=== PATIENT | female | born 1935 | race Asian ===

== ENCOUNTER → 2017-01-26 | Outpatient (CLI) | payer OTHER ==
[~2017-01-26] MED LIST: AMLO5TAB66 PO; ASPI-1093 PO; ATOR40TA71 PO; BACL10TA PO; CETI-340 PO; CHOL10002 PO; DICL2100G TP; FLUT16H NS; FOLI1CAP16 PO; INSLAN SQ; INSU100C6 SQ; ISOS60TA4 PO; LOSA100T29 PO; METO-325 PO; NITR0.4T SL; PREG25 PO
== END | disposition home or self-care (01) ==
LOC: RADPV 11:02
PROVIDERS: ATTEND Internal Medicine Nephrology
DX: S92.345D Nondisplaced fracture of fourth metatarsal bone, left foot, subsequent encounter for fracture with routine healing (principal); M85.872 Other specified disorders of bone density and structure, left ankle and foot; Z91.81 History of falling; X58.XXXD Exposure to other specified factors, subsequent encounter

== ENCOUNTER 2017-09-15 17:12 | Emergency (ER) | payer OTHER ==
[~2017-09-15] VITALS: Ht 157.5 cm; Wt 75.0 kg
[~2017-09-15 17:12] MED LIST changes: -ASPI-1093 PO; +ASPI-1182 PO; -METO-325 PO; +METO-558 PO
[2017-09-15 17:37] LABS: GLUCOSE,POINT OF CARE 188 MG/DL (70-110)
[2017-09-15] MEDS ORDERED: ALBUTEROL SULFATE 2.5 MG/0.5 ML NEB SOLUTION NEB ONE ×2 (18:15)
[2017-09-15] MEDS ORDERED: ACETAMINOPHEN 325 MG TABLET PO ONE (18:15)
[2017-09-15] MEDS ORDERED: IPRATROPIUM BROMIDE 0.5 MG/2.5 ML NEB SOLUTION NEB ONE (18:15)
[2017-09-15] MEDS ORDERED: ONDANSETRON HCL 4 MG/2 ML VIAL IVP ONE (18:15)
[2017-09-15 18:28] LABS: CALCIUM, TOTAL 8.5 mg/dL (8.8-10.5); CREATININE 1.53 mg/dL (0.60-1.30); POTASSIUM 3.6 mmol/L (3.5-5.1)
[2017-09-15 18:31] LABS: BASOPHILS % (AUTO) 0.9 % (0.0-2.0); EOSINOPHILS % (AUTO) 0.1 % (1.0-6.0); HEMATOCRIT 27.5 % (36-46); HEMOGLOBIN 9.1 g/dL (12.0-16.0); LYMPHOCYTES # (AUTO) 0.6 K/uL (1.0-4.8); LYMPHOCYTES % (AUTO) 5.4 % (22.0-44.0); MEAN CORPUSCULAR HEMOGLOBIN 30.6 pg (26.0-34.0); MEAN CORPUSCULAR HGB CONC 33.3 G/dL (31.0-37.0); MEAN CORPUSCULAR VOLUME 92 fL (80-100); MONOCYTES # (AUTO) 0.3 K/uL (0.1-1.0); MONOCYTES % (AUTO) 2.4 % (2.0-9.0); NEUTROPHILS # (AUTO) 9.6 K/uL (1.8-7.7); RED BLOOD CELL COUNT(AUTO) 2.99 MIL/uL (4.00-5.20); RED CELL DISTRIBUTION WIDTH 15.9 % (11.5-14.5)
[2017-09-15 18:32] LABS: NEUTROPHILS % (AUTO) 91.2 % (40.0-70.0)
[2017-09-15 18:34] LABS: ALBUMIN 3.3 g/dL (3.4-5.0); BILIRUBIN,TOTAL 0.6 mg/dL (0.1-1.0); TOTAL PROTEIN, SERUM 7.7 g/dL (6.4-8.2)
[2017-09-15 19:35] LABS: PLATELET COUNT (AUTO) 56 K/uL (150-450)
[2017-09-15 19:36] LABS: PLATELET MORPHOLOGY COMMENT GIANT PLTS PRESENT
[2017-09-15] MEDS ORDERED: FUROSEMIDE 40 MG/4 ML VIAL IVP ONE (20:00)
[2017-09-15] MEDS ORDERED: ALBUTEROL SULFATE 5 MG/ML 20 ML NEB SOLN [BULK] NEB ONE (20:00)
[2017-09-15] MEDS ORDERED: 0.9% SODIUM CHLORIDE 5 ML NEB SOLUTION NEB ONE (20:21)
[2017-09-15 22:25] LABS: APPEARANCE,URINE CLEAR (CLEAR); BILIRUBIN,URINE NEGATIVE (NEGATIVE); GLUCOSE, URINE (UA) 100 mg/dL (NEGATIVE); KETONES,URINE NEGATIVE (NEGATIVE); LEUKOCYTE ESTERASE ,URINE TRACE (NEGATIVE); NITRATE,URINE NEGATIVE (NEGATIVE); OCCULT BLOOD,URINE NEGATIVE (NEGATIVE); PH,URINE 5.5 (5.0-8.0); PROTEIN,URINE POS 1+ (NEGATIVE); UROBILINOGEN,URINE 0.2 mg/dL (<=1.0)
[2017-09-15 22:31] LABS: BACTERIA,URINE None Seen /HPF (None Seen); RBC,URINE None Seen /HPF (0-2); SQUAMOUS EPITHELIAL CELL,UR Moderate /LPF (None Seen); WBC,URINE 0-2 /HPF (0-5)
[2017-09-15 22:38] VITALS: BP 119/78
== END 2017-09-15 22:46 | disposition home or self-care (01) ==
LOC: EMS 17:13
DX: R11.2 Nausea with vomiting, unspecified (principal); K80.80 Other cholelithiasis without obstruction; I13.0 Hypertensive heart and chronic kidney disease with heart failure and stage 1 through stage 4 chronic kidney disease, or unspecified chronic kidney disease; N18.9 Chronic kidney disease, unspecified; I50.9 Heart failure, unspecified; R06.02 Shortness of breath; E78.00 Pure hypercholesterolemia, unspecified; I25.10 Atherosclerotic heart disease of native coronary artery without angina pectoris; Z79.4 Long term (current) use of insulin
CPT/HCPCS: 36415; 71010; 74176; 80053; 81001; 82962; 83690; 83880; 84484; 85025; 93005; 94640; 96374; 96375; 99285; J1940; J2405

== ENCOUNTER → 2018-01-26 | Outpatient (CLI) | payer MEDICARE, OTHER ==
[2018-01-26 13:58] LABS: BASOPHILS % (AUTO) 1.9 % (0.0-2.0); EOSINOPHILS % (AUTO) 11.2 % (1.0-6.0); HEMATOCRIT 26.8 % (36-46); LYMPHOCYTES # (AUTO) 1.4 K/uL (1.0-4.8); LYMPHOCYTES % (AUTO) 18.6 % (22.0-44.0); MEAN CORPUSCULAR HEMOGLOBIN 31.5 pg (26.0-34.0); MEAN CORPUSCULAR HGB CONC 33.5 G/dL (31.0-37.0); MEAN CORPUSCULAR VOLUME 94 fL (80-100); MONOCYTES # (AUTO) 0.7 K/uL (0.1-1.0); NEUTROPHILS # (AUTO) 4.6 K/uL (1.8-7.7); NEUTROPHILS % (AUTO) 59.3 % (40.0-70.0); PLATELET COUNT (AUTO) 49 K/uL (150-450); RED BLOOD CELL COUNT(AUTO) 2.86 MIL/uL (4.00-5.20); RED CELL DISTRIBUTION WIDTH 18.3 % (11.5-14.5)
[2018-01-26 14:04] LABS: ALBUMIN 3.4 g/dL (3.4-5.0); BILIRUBIN,TOTAL 1.2 mg/dL (0.1-1.0); CALCIUM, TOTAL 8.4 mg/dL (8.8-10.5); CREATININE 1.7 mg/dL (0.60-1.30); POTASSIUM 3.7 mmol/L (3.5-5.1); TOTAL PROTEIN, SERUM 7.7 g/dL (6.4-8.2)
[2018-01-26 14:10] LABS: PLATELET MORPHOLOGY COMMENT GIANT PLTS PRESENT
== END | disposition home or self-care (01) ==
LOC: LABPV 11:58
PROVIDERS: ATTEND Internal Medicine
DX: H57.8 Other specified disorders of eye and adnexa (principal); R60.9 Edema, unspecified; I11.0 Hypertensive heart disease with heart failure; I50.9 Heart failure, unspecified; I25.10 Atherosclerotic heart disease of native coronary artery without angina pectoris; E78.00 Pure hypercholesterolemia, unspecified

== ENCOUNTER 2019-07-06 14:41 | Inpatient (IN) | payer MEDICARE, OTHER ==
[~2019-07-06] VITALS: Ht 157.5 cm; Wt 68.8 kg
[~2019-07-06 14:41] MED LIST changes: -ASPI-1182 PO; +ASPI-556 PO; -BACL10TA PO; +BENZ-51 PO; -CETI-340 PO; -CHOL10002 PO; -DICL2100G TP; +FERR325T22 PO; -FLUT16H NS; -FOLI1CAP16 PO; +FURO40 PO; +GLIP5 PO; -INSLAN SQ; -INSU100C6 SQ; -ISOS60TA4 PO; -LOSA100T29 PO; +LOSA25TA41 PO; -METO-558 PO; +METO25 PO; -NITR0.4T SL; +OMEP20CA12 PO; -PREG25 PO
[2019-07-06 15:07] LABS: GLUCOSE,POINT OF CARE 301 MG/DL (70-110)
[2019-07-06 15:28] LABS: CALCIUM, TOTAL 8.4 mg/dL (8.8-10.5); CREATININE 1.79 mg/dL (0.60-1.30); POTASSIUM 5.7 mmol/L (3.5-5.1)
[2019-07-06] MEDS ORDERED: FUROSEMIDE 40 MG/4 ML VIAL IVP ONE (15:30)
[2019-07-06 15:34] LABS: ALBUMIN 3.3 g/dL (3.4-5.0); BILIRUBIN,TOTAL 0.7 mg/dL (0.1-1.0); INR 1.1 (0.9-1.1); PROTHROMBIN TIME 11.1 SEC (9.4-11.6)
[2019-07-06 15:48] LABS: HEMATOCRIT 23.6 % (36-46); HEMOGLOBIN 7.8 g/dL (12.0-16.0); MEAN CORPUSCULAR HEMOGLOBIN 33.9 pg (26.0-34.0); MEAN CORPUSCULAR HGB CONC 32.9 G/dL (31.0-37.0); MEAN CORPUSCULAR VOLUME 103 fL (80-100); RED BLOOD CELL COUNT(AUTO) 2.29 MIL/uL (4.00-5.20); RED CELL DISTRIBUTION WIDTH 19.2 % (11.5-14.5)
[2019-07-06] MEDS ORDERED: ALBUTEROL SULFATE 5 MG/ML 20 ML NEB SOLN [BULK] NEB ONE (16:00)
[2019-07-06] MEDS ORDERED: DEXTROSE 50%-WATER 25 GM/50 ML SYRINGE IVP ONE (16:00)
[2019-07-06] MEDS ORDERED: CALCIUM GLUCONATE 100 MG/ML 10 ML IVP ONE (16:00)
[2019-07-06] MEDS ORDERED: INSULIN REGULAR, HUMAN 100 UNITS/ML IVP ONE (16:00)
[2019-07-06 16:33] LABS: PLATELET COUNT (AUTO) 70 K/uL (150-450)
[2019-07-06 16:34] LABS: BAND NEUTROPHILS % (MANUAL) 1 % (0-5); BASOPHILS % (MANUAL) 1 % (0-2); EOSINOPHILS % (MANUAL) 1 % (1-6); LYMPHOCYTES % (MANUAL) 26 % (22-44); MONOCYTES % (MANUAL) 3 % (2-9); REACTIVE LYMPHOCYTES 3 % (0-0); SEGMENTED NEUTROPHILS % 65 % (40-70)
[2019-07-06 16:35] LABS: METAMYELOCYTES % 0 % (0-0); MYELOCYTES % 0 % (0-0)
[2019-07-06 16:36] LABS: BLASTS, MANUAL % 0 (0-0); PROMYELOCYTES % 0 (0-0)
[2019-07-06 16:37] LABS: PLATELET MORPHOLOGY COMMENT GIANT PLTS PRESENT
[2019-07-06] MEDS ORDERED: 0.9% SODIUM CHLORIDE 10 ML SYRINGE IVP PRN (17:15)
[2019-07-06] MEDS ORDERED: ACETAMINOPHEN 325 MG TABLET PO PRN (17:15)
[2019-07-06] MEDS ORDERED: ONDANSETRON HCL 4 MG/2 ML VIAL IVP PRN ×2 (17:15→22:15)
[2019-07-06] MEDS ORDERED: 0.9% SODIUM CHLORIDE 5 ML NEB SOLUTION NEB ONE (17:21)
[2019-07-06 17:41] LABS: GLUCOSE,POINT OF CARE 209 MG/DL (70-110)
[2019-07-06 20:31] VITALS: BP 148/67
[2019-07-06] MEDS ORDERED: SODIUM CHLORIDE 0.9% 500 ML IV ONE (21:53)
[2019-07-06] MEDS ORDERED: HYDROCODONE/ACETAMINOPHEN 5-325 MG TABLET PO PRN (22:15)
[2019-07-06] MEDS ORDERED: DEXTROSE 50%-WATER 25 GM/50 ML SYRINGE IVP PRN (22:15)
[2019-07-06] MEDS ORDERED: BISACODYL 10 MG RECTAL RECTAL SUPPOSITORY PR PRN (22:15)
[2019-07-06] MEDS ORDERED: MAGNESIUM HYDROXIDE SUSPENSION 30 ML UDCUP PO PRN (22:15)
[2019-07-06] MEDS ORDERED: MORPHINE SULFATE 2 MG/ML SYRINGE IVP PRN (22:15)
[2019-07-06] MEDS ORDERED: ZOLPIDEM TARTRATE 5 MG TABLET PO PRN (22:15)
[2019-07-06] MEDS ORDERED: ALBUTEROL SULFATE 2.5 MG/0.5 ML NEB SOLUTION NEB PRN (22:15)
[2019-07-06] MEDS ORDERED: IPRATROPIUM BROMIDE 0.5 MG/2.5 ML NEB SOLUTION NEB PRN (22:15)
[2019-07-06] MEDS: HEPARIN SODIUM,PORCINE 5,000 UNITS/ML VIAL SQ SCH (23:07)
[2019-07-06 23:32] VITALS: BP 123/59
[2019-07-07] VITALS (12 sets, daily range): BP systolic 119–150; BP diastolic 58–91
[2019-07-07 05:33] LABS: HEMATOCRIT 24.6 % (36-46); HEMOGLOBIN 8.1 g/dL (12.0-16.0); MEAN CORPUSCULAR HGB CONC 33.1 G/dL (31.0-37.0); MEAN CORPUSCULAR VOLUME 100 fL (80-100); PLATELET COUNT (AUTO) 59 K/uL (150-450); RED BLOOD CELL COUNT(AUTO) 2.47 MIL/uL (4.00-5.20); RED CELL DISTRIBUTION WIDTH 20.3 % (11.5-14.5)
[2019-07-07 05:52] LABS: ALBUMIN 3.2 g/dL (3.4-5.0); CALCIUM, TOTAL 8.4 mg/dL (8.8-10.5); CREATININE 1.71 mg/dL (0.60-1.30); POTASSIUM 4.6 mmol/L (3.5-5.1); TOTAL PROTEIN, SERUM 7.6 g/dL (6.4-8.2)
[2019-07-07] MEDS: GlipiZIDE 5 MG TABLET PO SCH ×2 (06:07→17:37)
[2019-07-07 06:18] LABS: GLUCOMETER DEV NAME(LOC) 5S.1; GLUCOSE,POINT OF CARE 138 MG/DL (70-110)
[2019-07-07 06:33] LABS: APPEARANCE,URINE CLEAR (CLEAR); BILIRUBIN,URINE NEGATIVE (NEGATIVE); GLUCOSE, URINE (UA) NEGATIVE (NEGATIVE); KETONES,URINE NEGATIVE (NEGATIVE); LEUKOCYTE ESTERASE ,URINE NEGATIVE (NEGATIVE); NITRATE,URINE NEGATIVE (NEGATIVE); OCCULT BLOOD,URINE NEGATIVE (NEGATIVE); PROTEIN,URINE TRACE (NEGATIVE); UROBILINOGEN,URINE 0.2 mg/dL (<=1.0)
[2019-07-07 07:36] LABS: GLUCOMETER DEV NAME(LOC) 5N.2; GLUCOSE,POINT OF CARE 177 MG/DL (70-110)
[2019-07-07 07:51] LABS: BAND NEUTROPHILS % (MANUAL) 2 % (0-5); EOSINOPHILS % (MANUAL) 3 % (1-6); LYMPHOCYTES % (MANUAL) 25 % (22-44); MONOCYTES % (MANUAL) 6 % (2-9); REACTIVE LYMPHOCYTES 1 % (0-0); SEGMENTED NEUTROPHILS % 63 % (40-70)
[2019-07-07 07:52] LABS: PLATELET MORPHOLOGY COMMENT GIANT PLTS PRESENT
[2019-07-07] MEDS: HEPARIN SODIUM,PORCINE 5,000 UNITS/ML VIAL SQ SCH ×3 (08:00→23:11)
[2019-07-07] MEDS: DOCUSATE SODIUM 100 MG CAPSULE PO SCH ×2 (09:00→20:23)
[2019-07-07] MEDS: METOPROLOL TARTRATE 25 MG TABLET PO SCH ×2 (09:00→20:21)
[2019-07-07] MEDS: AmLODIPine BESYLATE 5 MG TABLET PO SCH (09:56)
[2019-07-07] MEDS: ASPIRIN 81 MG EC TABLET PO SCH (09:56)
[2019-07-07] MEDS: FERROUS SULFATE 325 MG EC TABLET PO SCH (09:56)
[2019-07-07] MEDS: LOSARTAN POTASSIUM 25 MG TABLET PO SCH (09:56)
[2019-07-07] MEDS: FUROSEMIDE 40 MG/4 ML VIAL IVP SCH ×2 (09:56→20:22)
[2019-07-07] MEDS: OMEPRAZOLE 20 MG CAPSULE PO SCH (09:57)
[2019-07-07 11:41] LABS: GLUCOMETER DEV NAME(LOC) 5N.2; GLUCOSE,POINT OF CARE 110 MG/DL (70-110)
[2019-07-07 16:52] LABS: GLUCOMETER DEV NAME(LOC) 5N.1; GLUCOSE,POINT OF CARE 90 MG/DL (70-110)
[2019-07-07] MEDS: ATORVASTATIN CALCIUM 40 MG TABLET PO SCH (20:22)
[2019-07-08] VITALS (8 sets, daily range): BP systolic 123–160; BP diastolic 58–85
[2019-07-08] MEDS: GlipiZIDE 5 MG TABLET PO SCH ×2 (05:45→17:27)
[2019-07-08 05:56] LABS: GLUCOMETER DEV NAME(LOC) 5N.2; GLUCOSE,POINT OF CARE 87 MG/DL (70-110)
[2019-07-08 05:56] LABS: GLUCOMETER DEV NAME(LOC) 5N.2; GLUCOSE,POINT OF CARE 110 MG/DL (70-110)
[2019-07-08] MEDS: HEPARIN SODIUM,PORCINE 5,000 UNITS/ML VIAL SQ SCH ×3 (08:00→23:15)
[2019-07-08] MEDS: AmLODIPine BESYLATE 5 MG TABLET PO SCH (08:30)
[2019-07-08] MEDS: FERROUS SULFATE 325 MG EC TABLET PO SCH (08:30)
[2019-07-08] MEDS: OMEPRAZOLE 20 MG CAPSULE PO SCH (08:32)
[2019-07-08] MEDS: ASPIRIN 81 MG EC TABLET PO SCH (08:33)
[2019-07-08] MEDS: DOCUSATE SODIUM 100 MG CAPSULE PO SCH ×3 (08:33→20:27)
[2019-07-08] MEDS: LOSARTAN POTASSIUM 25 MG TABLET PO SCH (08:33)
[2019-07-08] MEDS: METOPROLOL TARTRATE 25 MG TABLET PO SCH ×2 (09:21→20:27)
[2019-07-08] MEDS: FUROSEMIDE 40 MG/4 ML VIAL IVP SCH ×3 (09:23→20:26)
[2019-07-08] MEDS: INSULIN LISPRO 100 UNITS/ML SQ PRN ×3 (11:37→20:36)
[2019-07-08] MEDS ORDERED: LOPERAMIDE HCL 2 MG CAPSULE PO PRN (11:45)
[2019-07-08 11:47] LABS: GLUCOMETER DEV NAME(LOC) 5S.2A; GLUCOSE,POINT OF CARE 160 MG/DL (70-110)
[2019-07-08 15:52] LABS: CALCIUM, TOTAL 8.9 mg/dL (8.8-10.5); CREATININE 1.59 mg/dL (0.60-1.30); POTASSIUM 4.9 mmol/L (3.5-5.1)
[2019-07-08] MEDS: ATORVASTATIN CALCIUM 40 MG TABLET PO SCH (20:27)
[2019-07-08] MEDS: ACETAMINOPHEN 325 MG TABLET PO PRN (23:13)
[2019-07-09 05:08] VITALS: BP 136/72
[2019-07-09] MEDS: GlipiZIDE 5 MG TABLET PO SCH (05:33)
[2019-07-09 06:53] LABS: CALCIUM, TOTAL 8.7 mg/dL (8.8-10.5); CREATININE 1.56 mg/dL (0.60-1.30); POTASSIUM 4.5 mmol/L (3.5-5.1)
[2019-07-09 07:35] VITALS: BP 136/68
[2019-07-09] MEDS: DOCUSATE SODIUM 100 MG CAPSULE PO SCH (07:50)
[2019-07-09] MEDS: HEPARIN SODIUM,PORCINE 5,000 UNITS/ML VIAL SQ SCH ×2 (07:50→15:29)
[2019-07-09] MEDS: METOPROLOL TARTRATE 25 MG TABLET PO SCH (07:51)
[2019-07-09] MEDS: LOSARTAN POTASSIUM 25 MG TABLET PO SCH (07:52)
[2019-07-09] MEDS: OMEPRAZOLE 20 MG CAPSULE PO SCH (07:52)
[2019-07-09] MEDS: ASPIRIN 81 MG EC TABLET PO SCH (07:52)
[2019-07-09] MEDS: FERROUS SULFATE 325 MG EC TABLET PO SCH (07:52)
[2019-07-09] MEDS: AmLODIPine BESYLATE 5 MG TABLET PO SCH (07:52)
[2019-07-09] MEDS: FUROSEMIDE 40 MG/4 ML VIAL IVP SCH (07:53)
[2019-07-09] MEDS: ACETAMINOPHEN 325 MG TABLET PO PRN (07:54)
[2019-07-09 10:31] LABS: GLUCOMETER DEV NAME(LOC) 5N.1; GLUCOSE,POINT OF CARE 114 MG/DL (70-110)
[2019-07-09 11:25] VITALS: BP 134/71
[2019-07-09] MEDS: INSULIN LISPRO 100 UNITS/ML SQ PRN (12:16)
[2019-07-09 15:30] VITALS: BP 141/59
[2019-07-09 17:07] LABS: GLUCOMETER DEV NAME(LOC) 5N.2; GLUCOSE,POINT OF CARE 184 MG/DL (70-110)
[2019-07-09 17:07] LABS: GLUCOMETER DEV NAME(LOC) 5N.2; GLUCOSE,POINT OF CARE 192 MG/DL (70-110)
[2019-07-09 17:07] LABS: GLUCOMETER DEV NAME(LOC) 5N.2; GLUCOSE,POINT OF CARE 201 MG/DL (70-110)
[2019-07-09] MEDS ORDERED: FUROSEMIDE 40 MG TABLET PO SCH (21:00)
== END 2019-07-09 18:27 | disposition home or self-care (01) | DRG 291 ==
LOC: EMS 14:42 → 5S 17:28
PROVIDERS: ADMIT Hospitalist; ATTEND Hospitalist
PROC: 30233N1 Transfusion of Nonautologous Red Blood Cells into Peripheral Vein, Percutaneous Approach (ICD-10-PCS; principal; 2019-07-07)
DX: I13.0 Hypertensive heart and chronic kidney disease with heart failure and stage 1 through stage 4 chronic kidney disease, or unspecified chronic kidney disease (principal); I50.43 Acute on chronic combined systolic (congestive) and diastolic (congestive) heart failure; E44.0 Moderate protein-calorie malnutrition; E78.5 Hyperlipidemia, unspecified; N18.9 Chronic kidney disease, unspecified; E87.5 Hyperkalemia; M19.90 Unspecified osteoarthritis, unspecified site; I25.10 Atherosclerotic heart disease of native coronary artery without angina pectoris; E78.00 Pure hypercholesterolemia, unspecified; E11.22 Type 2 diabetes mellitus with diabetic chronic kidney disease; D64.9 Anemia, unspecified; Z95.1 Presence of aortocoronary bypass graft; Z82.49 Family history of ischemic heart disease and other diseases of the circulatory system
CPT/HCPCS: 86850; 86900; 86901; 86920; 93005; 94640; 96374; 96375; 97162; 99291; J0610; J1644; J1815; J1940; J7040; P9016

== ENCOUNTER 2019-09-30 11:48 | Emergency (ER) | payer MEDICARE, OTHER ==
[~2019-09-30] VITALS: Ht 149.9 cm; Wt 59.1 kg
[~2019-09-30 11:48] MED LIST changes: -BENZ-51 PO
[2019-09-30] MEDS ORDERED: ASPI81 PO (12:41)
[2019-09-30] MEDS ORDERED: INSNOV SQ (12:41)
[2019-09-30] MEDS ORDERED: ATOR10TA84 PO (12:41)
[2019-09-30] MEDS ORDERED: LIRA0.6P SQ (12:41)
[2019-09-30 12:43] LABS: GLUCOSE,POINT OF CARE 230 MG/DL (70-110)
[2019-09-30 14:12] LABS: BASOPHILS % (AUTO) 2.3 % (0.0-2.0); EOSINOPHILS % (AUTO) 11.2 % (1.0-6.0); HEMATOCRIT 22.4 % (36-46); HEMOGLOBIN 7.8 g/dL (12.0-16.0); LYMPHOCYTES # (AUTO) 1.2 K/uL (1.0-4.8); LYMPHOCYTES % (AUTO) 25.2 % (22.0-44.0); MEAN CORPUSCULAR HEMOGLOBIN 36.3 pg (26.0-34.0); MEAN CORPUSCULAR HGB CONC 34.8 G/dL (31.0-37.0); MEAN CORPUSCULAR VOLUME 104 fL (80-100); MONOCYTES # (AUTO) 0.4 K/uL (0.1-1.0); MONOCYTES % (AUTO) 8.2 % (2.0-9.0); NEUTROPHILS # (AUTO) 2.6 K/uL (1.8-7.7); NEUTROPHILS % (AUTO) 53.1 % (40.0-70.0); RED BLOOD CELL COUNT(AUTO) 2.15 MIL/uL (4.00-5.20); RED CELL DISTRIBUTION WIDTH 20.8 % (11.5-14.5)
[2019-09-30 14:19] LABS: CALCIUM, TOTAL 8.9 mg/dL (8.8-10.5); CREATININE 1.91 mg/dL (0.60-1.30); POTASSIUM 4.1 mmol/L (3.5-5.1)
[2019-09-30 14:24] LABS: ALBUMIN 3.8 g/dL (3.4-5.0); TOTAL PROTEIN, SERUM 8.6 g/dL (6.4-8.2)
[2019-09-30 14:31] LABS: PLATELET COUNT (AUTO) 18 K/uL (150-450)
[2019-09-30 14:32] LABS: PLATELET MORPHOLOGY COMMENT GIANT PLTS PRESENT
[2019-09-30 15:02] VITALS: BP 135/72
== END 2019-09-30 15:44 | disposition home or self-care (01) ==
LOC: EMS 11:50
DX: D69.6 Thrombocytopenia, unspecified (principal); D64.9 Anemia, unspecified; I11.0 Hypertensive heart disease with heart failure; I50.32 Chronic diastolic (congestive) heart failure; E11.9 Type 2 diabetes mellitus without complications; E78.00 Pure hypercholesterolemia, unspecified; I25.10 Atherosclerotic heart disease of native coronary artery without angina pectoris; M19.90 Unspecified osteoarthritis, unspecified site; Z95.1 Presence of aortocoronary bypass graft; Z79.899 Other long term (current) drug therapy; Z98.890 Other specified postprocedural states; Z79.82 Long term (current) use of aspirin; Z79.4 Long term (current) use of insulin
CPT/HCPCS: 93005

== ENCOUNTER 2019-11-14 01:06 | Emergency (ER) | payer MEDICARE, OTHER ==
[~2019-11-14] VITALS: Ht 154.9 cm; Wt 59.1 kg
[~2019-11-14 01:06] MED LIST changes: -AMLO5TAB66 PO; -ASPI-556 PO; +ASPI-728 PO; +ATOR10TA84 PO; -ATOR40TA71 PO; -GLIP5 PO; +INSNOV SQ; +LIRA0.6P SQ; -LOSA25TA41 PO; -METO25 PO
[2019-11-14] MEDS ORDERED: PREG75 PO (01:19)
[2019-11-14] MEDS ORDERED: LOSA25TA71 PO (01:19)
[2019-11-14] MEDS ORDERED: MAGOX PO (01:19)
[2019-11-14 02:01] LABS: GLUCOSE,POINT OF CARE 267 MG/DL (70-110)
[2019-11-14] MEDS ORDERED: ACETAMINOPHEN 500 MG TABLET PO ONE (02:15)
[2019-11-14] MEDS ORDERED: ONDANSETRON HCL 4 MG TABLET PO ONE (02:15)
[2019-11-14 02:39] LABS: HEMOGLOBIN 7.5 g/dL (12.0-16.0); LYMPHOCYTES # (AUTO) 0.9 K/uL (1.0-4.8)
[2019-11-14 02:40] LABS: CALCIUM, TOTAL 9.5 mg/dL (8.8-10.5); CREATININE 1.86 mg/dL (0.60-1.30); POTASSIUM 3.9 mmol/L (3.5-5.1)
[2019-11-14 02:42] LABS: INR 1.2 (0.9-1.1)
[2019-11-14 02:46] LABS: ALBUMIN 3.6 g/dL (3.4-5.0); BASOPHILS % (AUTO) 1.3 % (0.0-2.0); BILIRUBIN,TOTAL 1.7 mg/dL (0.1-1.0); HEMATOCRIT 21.8 % (36-46); LYMPHOCYTES % (AUTO) 18.8 % (22.0-44.0); MAGNESIUM 1.8 mg/dL (1.80-2.40); MEAN CORPUSCULAR HEMOGLOBIN 35.5 pg (26.0-34.0); MEAN CORPUSCULAR HGB CONC 34.4 G/dL (31.0-37.0); MEAN CORPUSCULAR VOLUME 103 fL (80-100); MONOCYTES # (AUTO) 0.5 K/uL (0.1-1.0); MONOCYTES % (AUTO) 10.9 % (2.0-9.0); NEUTROPHILS # (AUTO) 3.2 K/uL (1.8-7.7); RED BLOOD CELL COUNT(AUTO) 2.11 MIL/uL (4.00-5.20); RED CELL DISTRIBUTION WIDTH 21.2 % (11.5-14.5); TOTAL PROTEIN, SERUM 8.6 g/dL (6.4-8.2)
[2019-11-14 02:49] LABS: LACTIC ACID 1.2 mmol/L (0.4-2.0)
[2019-11-14 03:12] LABS: PLATELET MORPHOLOGY COMMENT GIANT PLTS PRESENT
[2019-11-14 03:13] LABS: PLATELET COUNT (AUTO) 45 K/uL (150-450)
[2019-11-14] MEDS ORDERED: INSULIN REGULAR, HUMAN 100 UNITS/ML SQ ONE (04:00)
[2019-11-14 04:02] VITALS: BP 114/58
== END 2019-11-14 04:15 | disposition home or self-care (01) ==
LOC: EMS 01:07
DX: R51 Headache (principal); R06.02 Shortness of breath; R11.0 Nausea; M79.605 Pain in left leg; M79.604 Pain in right leg; R10.13 Epigastric pain; I25.10 Atherosclerotic heart disease of native coronary artery without angina pectoris; I11.0 Hypertensive heart disease with heart failure; I50.9 Heart failure, unspecified; E11.9 Type 2 diabetes mellitus without complications; M19.90 Unspecified osteoarthritis, unspecified site; Z95.1 Presence of aortocoronary bypass graft; Z79.899 Other long term (current) drug therapy; Z98.890 Other specified postprocedural states
CPT/HCPCS: 36415; 71046; 80053; 82550; 82962; 83605; 83690; 83735; 83880; 84484; 85025; 85610; 85730; 93005; 99285; Q0162

== ENCOUNTER 2019-11-29 13:29 | Inpatient (IN) | payer MEDICARE, OTHER ==
[~2019-11-29] VITALS: Ht 152.4 cm; Wt 69.0 kg
[2019-11-29] VITALS (7 sets, daily range): BP systolic 95–120; BP diastolic 46–63
[~2019-11-29 13:29] MED LIST changes: -LIRA0.6P SQ; +LOSA25TA71 PO; +MAGOX PO; +PREG75 PO
[2019-11-29] MEDS ORDERED: POLYMYXIN B/TRIMETHOPRIM 10 ML OPHTHALMIC SOLUTION OS ONE (14:45)
[2019-11-29] MEDS ORDERED: 0.9% SODIUM CHLORIDE 10 ML SYRINGE IVP PRN (14:45)
[2019-11-29 15:23] LABS: GLUCOSE,POINT OF CARE 273 MG/DL (70-110)
[2019-11-29 15:28] LABS: MEAN CORPUSCULAR HEMOGLOBIN 35.5 pg (26.0-34.0); MEAN CORPUSCULAR HGB CONC 33.2 G/dL (31.0-37.0); MEAN CORPUSCULAR VOLUME 107 fL (80-100); RED CELL DISTRIBUTION WIDTH 21.4 % (11.5-14.5)
[2019-11-29 15:38] LABS: ANION GAP 7 mmol/L (8-16); CALCIUM, TOTAL 8.9 mg/dL (8.8-10.5); CARBON DIOXIDE 31 mmol/L (22-29); CHLORIDE 100 mmol/L (98-107); CREATININE 1.91 mg/dL (0.60-1.30); GLOMERULAR FILTR. RATE CALC 25 mL/min (>60); GLUCOSE,RANDOM 296 mg/dL (70-110); POTASSIUM 4.2 mmol/L (3.5-5.1); SODIUM SERUM 138 mmol/L (136-145); UREA NITROGEN, BLOOD 41 mg/dL (7-18)
[2019-11-29 15:42] LABS: HEMATOCRIT 20.3 % (36-46); HEMOGLOBIN 6.7 g/dL (12.0-16.0)
[2019-11-29 15:43] LABS: PLATELET COUNT (AUTO) 15 K/uL (150-450)
[2019-11-29 15:44] LABS: ALANINE AMINOTRANSFERASE 21 U/L (12-78); ALBUMIN 3.3 g/dL (3.4-5.0); ALKALINE PHOSPHATASE 184 U/L (46-116); ASPARTATE AMINOTRANSFERASE 17 U/L (15-37); BILIRUBIN,TOTAL 1.9 mg/dL (0.1-1.0); CREATINE KINASE, TOTAL ONLY 16 U/L (26-192); TOTAL PROTEIN, SERUM 8.4 g/dL (6.4-8.2)
[2019-11-29 15:53] LABS: INR 1.2 (0.9-1.1); PROTHROMBIN TIME 11.8 SEC (9.4-11.6)
[2019-11-29 15:55] LABS: LACTIC ACID 2.1 mmol/L (0.4-2.0)
[2019-11-29] MEDS ORDERED: SODIUM CHLORIDE 0.9% 1,900 ML IV ONE (15:57)
[2019-11-29 16:01] LABS: B-TYPE NATRIURETIC PEPTIDE 1230 pg/mL (0-100)
[2019-11-29 16:19] LABS: BAND NEUTROPHILS % (MANUAL) 2 % (0-5); EOSINOPHILS % (MANUAL) 3 % (1-6); LYMPHOCYTES % (MANUAL) 31 % (22-44); MONOCYTES % (MANUAL) 5 % (2-9); REACTIVE LYMPHOCYTES 3 % (0-0); SEGMENTED NEUTROPHILS % 56 % (40-70)
[2019-11-29 16:23] LABS: PLATELET MORPHOLOGY COMMENT DECREASED
[2019-11-29 16:27] LABS: APPEARANCE,URINE CLEAR (CLEAR); BILIRUBIN,URINE NEGATIVE (NEGATIVE); GLUCOSE, URINE (UA) 250 mg/dL (NEGATIVE); KETONES,URINE NEGATIVE (NEGATIVE); LEUKOCYTE ESTERASE ,URINE NEGATIVE (NEGATIVE); NITRATE,URINE NEGATIVE (NEGATIVE); OCCULT BLOOD,URINE NEGATIVE (NEGATIVE); PROTEIN,URINE POS 1+ (NEGATIVE); UROBILINOGEN,URINE 0.2 mg/dL (<=1.0)
[2019-11-29] MEDS ORDERED: CefTRIAXone 1 GM/DEXTROSE 50 ML IV ONE (16:45)
[2019-11-29] MEDS ORDERED: PANTOPRAZOLE SODIUM 40 MG/VIAL IVP ONE (16:45)
[2019-11-29] MEDS ORDERED: PANTOPRAZOLE SODIUM 80 MG in SODIUM CHLORIDE 0.9% 100 ML IV SCH (16:45)
[2019-11-29] MEDS ORDERED: ACETAMINOPHEN 500 MG TABLET PO ONE (16:45)
[2019-11-29] MEDS ORDERED: AZITHROMYCIN 500 MG/NS 250 ML IV ONE (16:45)
[2019-11-29 17:00] LABS: BACTERIA,URINE Rare /HPF (None Seen); RBC,URINE 0-2 /HPF (0-2); SQUAMOUS EPITHELIAL CELL,UR Few /LPF (None Seen)
[2019-11-29 17:01] LABS: INFLUENZA TYPE A NEGATIVE FOR TYPE A (NEGATIVE); INFLUENZA TYPE B NEGATIVE FOR TYPE B (NEGATIVE)
[2019-11-29] MEDS ORDERED: VANCOMYCIN HCL 1 GM/D5% WATER 200 ML IV ONE (18:00)
[2019-11-29] MEDS ORDERED: ALBUTEROL SULFATE 2.5 MG/0.5 ML NEB SOLUTION NEB PRN (21:45)
[2019-11-29] MEDS ORDERED: MAGNESIUM HYDROXIDE SUSPENSION 30 ML UDCUP PO PRN (21:45)
[2019-11-29] MEDS ORDERED: HYDROCODONE/ACETAMINOPHEN 5-325 MG TABLET PO PRN (21:45)
[2019-11-29] MEDS ORDERED: IPRATROPIUM BROMIDE 0.5 MG/2.5 ML NEB SOLUTION NEB PRN (21:45)
[2019-11-29] MEDS ORDERED: ZOLPIDEM TARTRATE 5 MG TABLET PO PRN (21:45)
[2019-11-29] MEDS ORDERED: BISACODYL 10 MG RECTAL RECTAL SUPPOSITORY PR PRN (21:45)
[2019-11-29] MEDS: POLYMYXIN B/TRIMETHOPRIM 10 ML OPHTHALMIC SOLUTION OU SCH (22:53)
[2019-11-30] VITALS (10 sets, daily range): BP systolic 108–135; BP diastolic 51–66
[2019-11-30 00:25] LABS: GLUCOMETER DEV NAME(LOC) 5N.1; GLUCOSE,POINT OF CARE 206 MG/DL (70-110)
[2019-11-30] MEDS ORDERED: ONDANSETRON HCL 4 MG/2 ML VIAL IVP PRN (02:45)
[2019-11-30] MEDS ORDERED: MORPHINE SULFATE 2 MG/ML SYRINGE IVP PRN (02:45)
[2019-11-30 03:03] LABS: HEMATOCRIT 23.4 % (36-46); HEMOGLOBIN 7.9 g/dL (12.0-16.0)
[2019-11-30] MEDS: PANTOPRAZOLE SODIUM 80 MG in SODIUM CHLORIDE 0.9% 100 ML IV SCH ×2 (03:44→21:24)
[2019-11-30] MEDS: ACETAMINOPHEN 325 MG TABLET PO PRN (03:47)
[2019-11-30] MEDS: POLYMYXIN B/TRIMETHOPRIM 10 ML OPHTHALMIC SOLUTION OU SCH ×3 (06:30→18:25)
[2019-11-30] MEDS: DOCUSATE SODIUM 100 MG CAPSULE PO SCH ×2 (09:35→21:24)
[2019-11-30 12:15] LABS: GLUCOMETER DEV NAME(LOC) 5S.1; GLUCOSE,POINT OF CARE 243 MG/DL (70-110)
[2019-11-30 12:16] LABS: EOSINOPHILS % (AUTO) 4.2 % (1.0-6.0); HEMATOCRIT 24.8 % (36-46); HEMOGLOBIN 8.3 g/dL (12.0-16.0); LYMPHOCYTES % (AUTO) 28.3 % (22.0-44.0); MEAN CORPUSCULAR HEMOGLOBIN 35.3 pg (26.0-34.0); MEAN CORPUSCULAR HGB CONC 33.5 G/dL (31.0-37.0); MEAN CORPUSCULAR VOLUME 105 fL (80-100); MONOCYTES # (AUTO) 0.2 K/uL (0.1-1.0); MONOCYTES % (AUTO) 6.7 % (2.0-9.0); NEUTROPHILS # (AUTO) 0.4 K/uL (1.8-7.7); NEUTROPHILS % (AUTO) 11.2 % (40.0-70.0); RED BLOOD CELL COUNT(AUTO) 2.36 MIL/uL (4.00-5.20); RED CELL DISTRIBUTION WIDTH 21.2 % (11.5-14.5)
[2019-11-30 12:25] LABS: CALCIUM, TOTAL 8.8 mg/dL (8.8-10.5); CREATININE 1.8 mg/dL (0.60-1.30); POTASSIUM 4.4 mmol/L (3.5-5.1)
[2019-11-30 12:30] LABS: BASOPHILS % (AUTO) 4.6 % (0.0-2.0); PLATELET COUNT (AUTO) 18 K/uL (150-450)
[2019-11-30 12:31] LABS: PLATELET MORPHOLOGY COMMENT DECREASED
[2019-11-30 12:36] LABS: BILIRUBIN,TOTAL 2.8 mg/dL (0.1-1.0)
[2019-11-30] MEDS ORDERED: DEXTROSE 50%-WATER 25 GM/50 ML SYRINGE IVP PRN (18:15)
[2019-11-30] MEDS: INSULIN LISPRO 100 UNITS/ML SQ PRN (21:23)
[2019-12-01 00:05] VITALS: BP 122/52
[2019-12-01] MEDS: ACETAMINOPHEN 325 MG TABLET PO PRN ×2 (00:13→19:51)
[2019-12-01] MEDS: PANTOPRAZOLE SODIUM 80 MG in SODIUM CHLORIDE 0.9% 100 ML IV SCH ×3 (00:14→18:50)
[2019-12-01 05:08] VITALS: BP 105/47
[2019-12-01] MEDS: POLYMYXIN B/TRIMETHOPRIM 10 ML OPHTHALMIC SOLUTION OU SCH ×3 (05:42→18:17)
[2019-12-01 07:15] LABS: EOSINOPHILS % (AUTO) 8.7 % (1.0-6.0); HEMATOCRIT 22.1 % (36-46); HEMOGLOBIN 7.7 g/dL (12.0-16.0); LYMPHOCYTES # (AUTO) 1.4 K/uL (1.0-4.8); LYMPHOCYTES % (AUTO) 34.3 % (22.0-44.0); MEAN CORPUSCULAR HEMOGLOBIN 36.3 pg (26.0-34.0); MEAN CORPUSCULAR HGB CONC 34.8 G/dL (31.0-37.0); MEAN CORPUSCULAR VOLUME 105 fL (80-100); MONOCYTES % (AUTO) 0.4 % (2.0-9.0); NEUTROPHILS # (AUTO) 2.3 K/uL (1.8-7.7); NEUTROPHILS % (AUTO) 54.6 % (40.0-70.0); RED BLOOD CELL COUNT(AUTO) 2.11 MIL/uL (4.00-5.20); RED CELL DISTRIBUTION WIDTH 20.8 % (11.5-14.5)
[2019-12-01 07:18] LABS: ALBUMIN 2.9 g/dL (3.4-5.0); BILIRUBIN,TOTAL 2.2 mg/dL (0.1-1.0); CALCIUM, TOTAL 8.9 mg/dL (8.8-10.5); CREATININE 1.84 mg/dL (0.60-1.30); PLATELET COUNT (AUTO) 14 K/uL (150-450); POTASSIUM 3.8 mmol/L (3.5-5.1); TOTAL PROTEIN, SERUM 7.6 g/dL (6.4-8.2)
[2019-12-01 07:45] VITALS: BP 100/50
[2019-12-01] MEDS: DOCUSATE SODIUM 100 MG CAPSULE PO SCH ×2 (08:57→19:52)
[2019-12-01 09:00] LABS: GLUCOMETER DEV NAME(LOC) 5S.1; GLUCOSE,POINT OF CARE 231 MG/DL (70-110)
[2019-12-01 09:00] LABS: GLUCOMETER DEV NAME(LOC) 5S.1; GLUCOSE,POINT OF CARE 129 MG/DL (70-110)
[2019-12-01 10:49] VITALS: BP 127/60
[2019-12-01] MEDS: INSULIN LISPRO 100 UNITS/ML SQ PRN ×3 (12:23→20:59)
[2019-12-01 15:01] LABS: GLUCOMETER DEV NAME(LOC) 5N.1; GLUCOSE,POINT OF CARE 156 MG/DL (70-110)
[2019-12-01 16:07] VITALS: BP 118/64
[2019-12-01 18:40] LABS: GLUCOMETER DEV NAME(LOC) 5S.1; GLUCOSE,POINT OF CARE 239 MG/DL (70-110)
[2019-12-01 20:07] VITALS: BP 117/65
[2019-12-02 00:28] VITALS: BP 117/55
[2019-12-02] MEDS: ACETAMINOPHEN 325 MG TABLET PO PRN (01:38)
[2019-12-02 03:02] LABS: GLUCOMETER DEV NAME(LOC) 5N.1; GLUCOSE,POINT OF CARE 246 MG/DL (70-110)
[2019-12-02 04:49] VITALS: BP 106/50
[2019-12-02] MEDS: PANTOPRAZOLE SODIUM 80 MG in SODIUM CHLORIDE 0.9% 100 ML IV SCH ×2 (05:01→14:47)
[2019-12-02] MEDS: POLYMYXIN B/TRIMETHOPRIM 10 ML OPHTHALMIC SOLUTION OU SCH ×3 (05:18→18:53)
[2019-12-02 05:58] LABS: GLUCOMETER DEV NAME(LOC) 5N.1; GLUCOSE,POINT OF CARE 115 MG/DL (70-110)
[2019-12-02 07:06] VITALS: BP 123/59
[2019-12-02 07:12] LABS: BASOPHILS % (AUTO) 1.4 % (0.0-2.0); EOSINOPHILS % (AUTO) 15.1 % (1.0-6.0); HEMATOCRIT 22.7 % (36-46); HEMOGLOBIN 7.7 g/dL (12.0-16.0); LYMPHOCYTES # (AUTO) 1.2 K/uL (1.0-4.8); LYMPHOCYTES % (AUTO) 34.7 % (22.0-44.0); MEAN CORPUSCULAR HEMOGLOBIN 35.5 pg (26.0-34.0); MEAN CORPUSCULAR HGB CONC 33.8 G/dL (31.0-37.0); MEAN CORPUSCULAR VOLUME 105 fL (80-100); MONOCYTES # (AUTO) 0.3 K/uL (0.1-1.0); MONOCYTES % (AUTO) 7.4 % (2.0-9.0); NEUTROPHILS # (AUTO) 1.5 K/uL (1.8-7.7); NEUTROPHILS % (AUTO) 41.4 % (40.0-70.0); RED BLOOD CELL COUNT(AUTO) 2.16 MIL/uL (4.00-5.20); RED CELL DISTRIBUTION WIDTH 20.6 % (11.5-14.5)
[2019-12-02 07:35] LABS: PLATELET COUNT (AUTO) 12 K/uL (150-450)
[2019-12-02 07:40] LABS: ALBUMIN 2.9 g/dL (3.4-5.0); BILIRUBIN,TOTAL 1.8 mg/dL (0.1-1.0); CALCIUM, TOTAL 8.7 mg/dL (8.8-10.5); CREATININE 1.84 mg/dL (0.60-1.30); TOTAL PROTEIN, SERUM 7.6 g/dL (6.4-8.2)
[2019-12-02] MEDS: DOCUSATE SODIUM 100 MG CAPSULE PO SCH ×2 (09:07→21:00)
[2019-12-02 11:21] VITALS: BP 127/64
[2019-12-02] MEDS: INSULIN LISPRO 100 UNITS/ML SQ PRN ×3 (11:58→20:22)
[2019-12-02 15:53] VITALS: BP 119/59
[2019-12-02 22:50] VITALS: BP 124/65
[2019-12-03 04:01] LABS: GLUCOMETER DEV NAME(LOC) 5N.1; GLUCOSE,POINT OF CARE 242 MG/DL (70-110)
[2019-12-03 04:01] LABS: GLUCOMETER DEV NAME(LOC) 5N.1; GLUCOSE,POINT OF CARE 234 MG/DL (70-110)
[2019-12-03 04:01] LABS: GLUCOMETER DEV NAME(LOC) 5S.1; GLUCOSE,POINT OF CARE 193 MG/DL (70-110)
[2019-12-03 04:12] VITALS: BP 126/57
[2019-12-03] MEDS: ACETAMINOPHEN 325 MG TABLET PO PRN (06:01)
[2019-12-03] MEDS: POLYMYXIN B/TRIMETHOPRIM 10 ML OPHTHALMIC SOLUTION OU SCH ×2 (06:02→11:16)
[2019-12-03] MEDS: INSULIN LISPRO 100 UNITS/ML SQ PRN (06:30)
[2019-12-03 07:42] VITALS: BP 129/56
[2019-12-03] MEDS: DOCUSATE SODIUM 100 MG CAPSULE PO SCH (07:42)
[2019-12-03 07:51] LABS: BASOPHILS % (AUTO) 1.7 % (0.0-2.0); HEMATOCRIT 22.9 % (36-46); HEMOGLOBIN 7.9 g/dL (12.0-16.0); LYMPHOCYTES # (AUTO) 1.2 K/uL (1.0-4.8); LYMPHOCYTES % (AUTO) 30.2 % (22.0-44.0); MEAN CORPUSCULAR HEMOGLOBIN 35.8 pg (26.0-34.0); MEAN CORPUSCULAR HGB CONC 34.3 G/dL (31.0-37.0); MEAN CORPUSCULAR VOLUME 104 fL (80-100); MONOCYTES % (AUTO) 0.9 % (2.0-9.0); NEUTROPHILS # (AUTO) 2.1 K/uL (1.8-7.7); NEUTROPHILS % (AUTO) 51.3 % (40.0-70.0); RED BLOOD CELL COUNT(AUTO) 2.19 MIL/uL (4.00-5.20); RED CELL DISTRIBUTION WIDTH 20.4 % (11.5-14.5)
[2019-12-03 07:57] LABS: EOSINOPHILS % (AUTO) 15.9 % (1.0-6.0); PLATELET COUNT (AUTO) 14 K/uL (150-450)
[2019-12-03 08:07] LABS: ALBUMIN 3.2 g/dL (3.4-5.0); BILIRUBIN,TOTAL 1.8 mg/dL (0.1-1.0); CALCIUM, TOTAL 8.6 mg/dL (8.8-10.5); CREATININE 1.65 mg/dL (0.60-1.30); POTASSIUM 4.6 mmol/L (3.5-5.1); TOTAL PROTEIN, SERUM 8.2 g/dL (6.4-8.2)
[2019-12-03 12:48] VITALS: BP 135/68
[2019-12-03] MEDS ORDERED: POLY10DR3 OU (15:30)
[2019-12-03] MEDS ORDERED: ACET-66 PO (15:31)
[2019-12-03 17:28] LABS: GLUCOMETER DEV NAME(LOC) 5S.1; GLUCOSE,POINT OF CARE 171 MG/DL (70-110)
[2019-12-03 17:28] LABS: GLUCOMETER DEV NAME(LOC) 5S.1; GLUCOSE,POINT OF CARE 163 MG/DL (70-110)
== END 2019-12-03 11:30 | disposition home or self-care (01) | DRG 563 ==
LOC: EMS 13:35 → 5N 18:00
PROVIDERS: ADMIT Hospitalist; ATTEND Hospitalist
PROC: 30233N1 Transfusion of Nonautologous Red Blood Cells into Peripheral Vein, Percutaneous Approach (ICD-10-PCS; principal; 2019-11-29)
DX: S92.345A Nondisplaced fracture of fourth metatarsal bone, left foot, initial encounter for closed fracture (principal); D61.818 Other pancytopenia; I50.32 Chronic diastolic (congestive) heart failure; S92.335A Nondisplaced fracture of third metatarsal bone, left foot, initial encounter for closed fracture; S92.325A Nondisplaced fracture of second metatarsal bone, left foot, initial encounter for closed fracture; H10.9 Unspecified conjunctivitis; D64.9 Anemia, unspecified; E11.9 Type 2 diabetes mellitus without complications; E78.5 Hyperlipidemia, unspecified; I25.10 Atherosclerotic heart disease of native coronary artery without angina pectoris; I11.0 Hypertensive heart disease with heart failure; M19.90 Unspecified osteoarthritis, unspecified site; E78.00 Pure hypercholesterolemia, unspecified; W10.9XXA Fall (on) (from) unspecified stairs and steps, initial encounter; I49.9 Cardiac arrhythmia, unspecified; Y93.89 Activity, other specified; Y92.89 Other specified places as the place of occurrence of the external cause; Y99.8 Other external cause status; Z95.1 Presence of aortocoronary bypass graft; X50.1XXA Overexertion from prolonged static or awkward postures, initial encounter
CPT/HCPCS: 70450; 74176; 82271; 83605; 84145; 85014; 85018; 86850; 86870; 86880; 86900; 86901; 86905; 86922; 87040; 87804; 93005; 97116; 97162; 97166; 97530; 97535; 99291; C9113; J0456; J0696; J3370; J7030; J7050; P9016